=== PATIENT | male | born 1970 | race Caucasian/White ===

== ENCOUNTER 2024-07-21 16:32 | Emergency (ER) | payer SELFPAY ==
--- NOTE | ~2024-07-21 | XR_ITS ---
HISTORY: injured right elbow working out COMPARISON: None TECHNIQUE: 3 views of the right elbow were performed. FINDINGS: Well-circumscribed osseous density is identified along the suspected course of the triceps tendon, re presenting either calcified triceps tendinosis versus an acute fracture of the olecranon at its attac hment. No elevation of the anterior or posterior fat pads are identified to suggest a supracondylar fracture . Remainder of the overlying soft tissues are otherwise unremarkable. Bone mineralization is age-appropriate. IMPRESSION: Findings posterior to the right elbow suggesting an acute fracture of the olecranon at t he attachment of the triceps tendon for which clinical correlation for a triceps tendon disruption is needed. MRI may also be performed, if the patient is clinically able. Reviewed, dictated and finalized at location A. IMPRESSION: Findings posterior to the right elbow suggesting an acute fracture of the olecranon at the attachment of the triceps tendon for which clinical co rrelation for a triceps tendon disruption is needed. MRI may also be performed, if the patient is clinically able.
--- NOTE | 2024-07-21 16:36 | ED.UPPEXIN ---
HPI - Extremity Injury (Upper) General Chief Complaint: Extremity Injury, Upper Stated Complaint: Injured Shoulder Time Seen by Provider: 07/21/24 16:36 Source: patient Mode of arrival: ambulatory Limitations: no limitations History of Present Illness HPI narrative: Stu is a 54-year-old male patient presenting to the clinic today with complaints of a right elbow injury when lifting weights around 3pm today. He reports he was bench pressing working on his triceps when he felt as though his elbow popped out of place- states he dumped the weights and felt as though it then pop back into place. Is having right elbow pain. Is requesting an x-ray of his elbow. Related Data Home Medications ?Medication ?Instructions ?Recorded ?Confirmed ?Last Taken ?Type allopurinol 100 mg tablet 100 mg PO DAILY 03/22/19 03/22/19 03/22/19 History colchicine 0.6 mg tablet 0.6 mg PO DAILY 03/22/19 03/22/19 03/22/19 History indomethacin 50 mg capsule 50 mg PO BID 03/22/19 03/22/19 03/22/19 History olmesartan 40 mg tablet 40 mg PO DAILY 03/22/19 03/22/19 03/22/19 History Allergies Allergy/AdvReac Type Severity Reaction Status Date / Time acetaminophen Allergy Intermediate Swelling Verified 07/21/24 16:52 aspirin Allergy Intermediate Swelling Verified 07/21/24 16:52 Review of Systems Review of Systems: Pertinent positives per HPI. Patient denies any fever, chills, rash, headache, visual changes, dizziness, cough, runny nose, sore throat, shortness of breath, chest pain, palpitations, nausea, vomiting, diarrhea, constipation, abdominal pain, or any urinary issues. [facility] Past Medical History Medical History AVRIL (obstructive sleep apnea) Hypertension Family History Family History Father Hypertension Asthma Patient's father is in good health Family history of diabetes mellitus in first degree relative Mother Patient's mother is in good health Sibling Patient's sister is in good health Patient's brother is in good health Other Family history of allergic disorder Family history of migraine headaches Social History Social History (Reviewed 03/20/25 @ 16:44 by QI Avery Alcohol intake: current Comments At the time of my signature, I reviewed and agree with the nursing past medical, surgical, social, and family history. There is no relevant family history pertinent to the patient complaint. Exam Narrative: General: Well-developed, well nourished, in no apparent distress Head: Normocephalic, atraumatic. Cardio: Regular rate and rhythm, s1 and s2 normal, no murmur appreciated. Resp: Clear to auscultation bilaterally, no rhonchi, rales, wheezing or rubs. Musculoskeletal: No deformity, mild swelling with fluctuance noted over the posterior elbow, tender to palpation over the posterior olecranon, pain with flexion of the triceps over the triceps tendon, grossly normal range of motion, muscle strength strong and equal, peripheral pulse strong, no cyanosis, normal gait and station Course Course Emergency Course: Portions of this record may have been created with voice recognition software. Level of Care: Express Care Visit Vital Signs Vital signs: Vital Signs Temperature 36.6 C 07/21/24 16:47 Pulse Rate 77 07/21/24 16:47 Respiratory Rate 16 07/21/24 16:47 Blood Pressure 195/105 H 07/21/24 16:47 Pulse Oximetry 100 07/21/24 16:47 Temperature 36.6 C 07/21/24 16:47 Pulse Rate 77 07/21/24 16:47 Respiratory Rate 16 07/21/24 16:47 Blood Pressure 195/105 H 07/21/24 16:47 Pulse Oximetry 100 07/21/24 16:47 Vital signs reviewed MDM - Extremity Injury (Upper) MDM Narrative Medical decision making narrative: At the time of visit patient is resting comfortably on the exam table. Patient appears to be nontoxic. Diagnostics: X-ray of the right elbow was completed and shows likely avulsion fracture of the olecranon-probable triceps tendon rupture/injury Plan: I suspect patient has a closed posterior olecranon fracture with triceps tendon injury. Recommend follow-up with Dr. Vivar-call office tomorrow to schedule appointment. Copy of x-ray report and disc was given to the patient. Supportive measures were discussed with the patient and they voiced understanding discharge instructions and agrees to treatment plan. Return precautions reviewed Differential Diagnosis Differential diagnosis: Likely fracture of humerus and other (Avulsion fracture, elbow sprain, elbow dislocation, fracture of lateral epicodyle) Imaging Data Radiologist's impression: ITS Impressions Elbow X-Ray 07/21/24 17:13 IMPRESSION: Findings posterior to the right elbow suggesting an acute fracture of the olecranon at the attachment of the triceps tendon for which clinical correlation for a triceps tendon disruption is needed. MRI may also be performed, if the patient is clinically able. Discharge Plan Discharge Clinical Impression: Injury of tendon of triceps Closed olecranon fracture Qualifiers: Encounter type: initial encounter Laterality: right Qualified Code(s): S52.021A - Displaced fracture of olecranon process without intraarticular extension of right ulna, initial encounter for closed fracture Patient Disposition: Home, Self-Care Condition: Stable Instructions: Antibiotic Form, Elbow Fracture (ED), Tendon Rupture (ED) Additional Instructions: X-ray shows acute fracture of the olecranon an at the attachment of the triceps tendon-probable triceps tendon disruption Rest, ice, elevate, and wear laila wrap and arm sling as directed Tylenol/motrin for pain as discussed. No use of the right arm until cleared by orthopedic provider Call Dr. Vivar office tomorrow to schedule an appointment. Will likely need a MRI If you cannot get in to orthopedic provider your primary care provider may order the MRI as well. Patient Language: Persian Prescriptions: No Action allopurinol 100 mg Tablet 100 mg PO DAILY indomethacin 50 mg Capsule 50 mg PO BID colchicine 0.6 mg Tablet 0.6 mg PO DAILY olmesartan 40 mg Tablet 40 mg PO DAILY Follow-up/Referrals: PHYSICIAN,BRANCH RENTAL MANAGER [Primary Care Provider] - Evelio Vivar MD [Physician] - 1 Day (Posterior right elbow closed acute fracture of the olecranon at the attachment of the triceps tendon with possible disruption. MRI recommended for further evaluation) Time of Disposition: 17:38 Quality NIHSS Nursing Documentation ED NIHSS nursing documentation: reviewed/agree
[2024-07-21 16:47] VITALS: BP 195/105; PULSE 77; RESP 16; TEMP 36.6; O2SAT 100
== END 2024-07-21 17:47 | disposition home or self-care (01) ==
PROVIDERS: Emergency Provider Nurse Practitioner Family
DX: S52.021A Displaced fracture of olecranon process without intraarticular extension of right ulna, initial encounter for closed fracture (principal); S46.301A Unspecified injury of muscle, fascia and tendon of triceps, right arm, initial encounter; I10 Essential (primary) hypertension; X50.0XXA Overexertion from strenuous movement or load, initial encounter
CPT/HCPCS: 73080; 99214; A4565; G0463

== ENCOUNTER 2024-07-29 01:05 | Day surgery (SDC) | payer OTHER, SELFPAY ==
[2024-07-27 12:57] VITALS: BMI 36.8
--- NOTE | 2024-07-27 12:58 | PC.NURSE ---
Report to the Outpatient Waiting Room, entrance under the green pavilion located off [facility], at time _0630_ on date _[id number]_. Planned Procedure Time: _0830_.? Time changes happen often and if your time is changed the preop area will call you the afternoon before. - You and your visitor will be asked to self-screen and do not enter if you have any COVID symptoms. Please call surgeon if you need to reschedule. - A mask is optional within the hospital at this time. Patients may have clear liquids (water, carbonated beverages, clear teas, apple juice) until 3 hours prior to surgery with a maximum of 20 ounces. - No food from midnight until time of surgery and no smoking, or chewing tobacco (or any form of nicotine). No chewing gum, candy or mints. Take only the following medications with a SIP of water on the morning of surgery: __Tramadol if needed for pain.___ DO NOT STOP ANY OF YOUR OTHER PRESCRIPTION MEDICATIONS PRIOR TO SURGERY EXCEPT THE FOLLOWING Hold all vitamins and supplements for 3 days per anesthesiologist. Medications to discontinue per physician ___Indomethacin and Naproxen Date to take last dose___No more until after surgery.___ Please no make-up, nail maltese, hairspray, perfume, deodorant, or body powder the day of surgery.? No jewelry (including any body piercings) or valuables the day of surgery, leave them at home.? Please take a shower or bath the night before, or the morning of, surgery with an antibacterial soap.? Wear comfortable, loose fitting clothing.? - Jewelry must be removed prior to entering the operating room.? Rings and piercings that are not removed may be cut off. - The hospital will not accept responsibility for valuables.? - Please leave all valuables, including medications, at home the day of surgery. If you are going home after surgery, a licensed sprinkling truck driver must drive you home.? - NO public transportation without another adult if you receive anesthesia. - We recommend that an adult stay with you for 24 hours following discharge. - We also recommend that you do not drive, make important decision, drink alcoholic beverages, or take any drugs that were not prescribed by your health care provider for at least 24 hours after your discharge time. Follow any additional instructions given to you from your surgeon. Telephone instructions given to __James__and asked if any additional questions and then verbalized understanding. Patient advised to call surgeon office or pre surgery nurse liaison [phone] if any additional questions.
[2024-07-29] VITALS (13 sets, daily range): BP systolic 140–176; BP diastolic 71–106; PULSE 62–76; RESP 14–19; TEMP 36.2–36.4; O2SAT 93–99; BMI 37.1
--- OUTSIDE RECORDS SUMMARY | 2024-07-29 01:08 | XMS_ITS | Continuity of Care Document ---
Author Organization [facility] Address [address] [place] [address] [place] [address] Phone Care Team Providers Care Harp Regulator Name Role Phone Jose Rdz MD Unavailable Unavailable Allergies, Adverse Reactions, Alerts Substance Reaction Status Criticality acetaminophen Swelling around eyes Active No Inf ormation aspirin Swelling around eyes Active No Info rmation cat dander Trouble BreathingRed Eyes Active No Information Medications Medication Instructions Dosage Effective Dates (start - stop) Status Comments tramadol 50 mg tablet take 1 tablet by oral route every 6 hours as needed as needed 50 MG - Active PRN for gout indomethacin 50 mg capsule take 1 capsule by oral route 3 times every day with food 50 MG - Active colchicine 0.6 mg tablet take 2 tablet by oral route initially, then take 1 tab (0.6 mg ) in 1 hr as needed 1.2 MG - Active PRN for gout, max 3 pills per episodes and do not repeat within 3 days. allopurinol 300 mg tablet take 1 tablet by oral route every day 300 MG - Active prednisone 10 mg tablet take 3 tablet by oral route every day as needed 30 MG - Active PRN for gout sildenafil 100 mg tablet take 1 tablet by oral route every day as needed approximately 1 hour before sexual activity as needed 100 MG - Active take one pill orally about one hour before activity, max 1/24 hours Procedures Procedure Date PREV VISIT, EST, AGE 40-64 OFFICE/OUTPATIENT VISIT, EST PREV VISIT, NEW, AGE 40-64 OFFICE/OUTPATIENT VISIT, NEW Advance Directives Directive Yes / No Effective Date File Name No Information Encounters Encounter Description Practice Location Reason(s) For Visit Diagnoses Date Provider Providers Copied on Encounter [facility], [address] [place], [place], [id number], tel:[phone] [facility] Medicine No Information 4 Kendell Baird [address], [place], [place], [id number] , . tel: [phone] [facility], [address], [place], [id number], tel:[phone] [facility] No Information 4 Kendell Baird [address], [place], [place], [id number] , [place]. tel: [phone] PREV VISIT, EST, AGE 40-64 [facility], [address], [place], [id number], tel:[phone] [facility] physical (chief complaint) Encounter for general adult medical exam w abnormal findingsGoutObstruc tive sleep apnea hypopneaEssential (primary) hypertensionVenous insufficiencyMale erectile dysfunction, unspecifiedHypothyr oidismMixed hyperlipidemiaRenal disease 4 Kendell [address]. [address] [place], [place], [id number] , [place]. tel: [phone] PREV VISIT, NEW, AGE 40-64 [facility], [address], [place], [id number], [place] tel:[phone] [facility] physical (chief complaint) Encounter for general adult medical exam w abnormal findingsPrimary central sleep apneaMale erectile dysfunction, unspecifiedGoutEsse ntial (primary) hypertension 3 Kendell Garcia[address] [place], [place], [id number] , [place]. tel: [phone] Family History Family Member Type Diagnosis Age At Onset Father Problem Diabetes mellitus Mother Problem of COVID and emphysema 74 Father Problem Coronary artery disease Brother Problem Alive and well Payers Payer name Insurance type Covered green party ID Authoriza tion(s) No Information Social History Type Description Quantity Date Captured Comments Sex Male Smoking Status No Information Chief Complaint And Reason For Visit No Information Plan Of Treatment Date Type Action Status No Information History Of Present Illness Encounter Date Complaint History Of Prese nt Illness physical Pt needs annual physical Pt has gout with recurrent flare up. Pt takes allopurinol daily and he takes colchicine and prednisone and indocin PRN for flare up. Pt states that he has gout flare up at least 1-2 per month, especially both knee and both feet. Pt states that alcohol and weather change triggers the flare up .Pt notices joint swelling and redness and warmth with gout flare up. He has history of HTN but he has not been taking any bp meds and his bp is ok Pt also has ED and doing ok with sildenafil PRN pt also has some bilateral LE edema, especially towards end of the day and improves in the morning. Pt denies any sob Pt notices some discoloration around the bilateral LEs . Pt also has sleep apnea and he uses oral device and doing ok . Pt has mildly low thyroid and renal function and high TG physical Pt needs annual physical Pt has gout with recurrent flare up. Pt takes allopurinol daily and he takes colchicine and prednisone and indocin PRN for flare up. Pt states that he has gout flare up at least 1-2 per month, especially both knee and both feet. Pt states that alcohol and weather change triggers the flare up .Pt notices joint swelling and redness and warmth with gout flare up. He also was diagnosed with HTN and he is prescribed benicar but he does not take it. he does not believe that he has HTN. he denies any chest pain or headache. Pt also takes sildenafil pRn and doing ok Instructions Date Instruction Additional Infor mation No Information Assessments Type Assessment Date No Information
[2024-07-29] MEDS: LACTATED RINGERS 1,000 ML 30 ML IV CONT ×2 (07:00→10:40)
[2024-07-29] MEDS: KETOROLAC 15 MG/ML VIAL (*BKC) IV PUSH (07:20)
--- NOTE | 2024-07-29 07:38 | WPDANESEPPF ---
Anes - Initial Pre Proc Eval Procedure: Operation Date: 07/29/24 08:30 Proposed Procedures p Right Triceps Tendon Repair - Evelio Vivar MD Date/Time: 07/29/24 07:38 Surgeon: Evelio Vivar MD Pre Op Diagnosis: right triceps tendon rupture Patient Data Age: 54 Gender: M Height: 1.7 m Weight: 107.7 kg Last Vital Signs Temp 36.4 C L 07/29/24 06:36 Pulse 72 07/29/24 06:36 Resp 16 07/29/24 06:36 BP 169/91 H 07/29/24 06:36 Pulse Ox 99 07/29/24 06:36 O2 Del Method Room Air 07/29/24 06:36 Allergies Allergy/AdvReac Type Severity Reaction Status Date / Time acetaminophen Allergy Intermediate Swelling Verified 07/29/24 07:10 aspirin Allergy Intermediate Swelling Verified 07/29/24 07:10 Home Medications ?Medication ?Instructions ?Recorded ?Confirmed ?Type allopurinol 100 mg tablet 100 mg PO DAILY 03/22/19 07/29/24 History colchicine 0.6 mg tablet 0.6 mg PO DAILY 03/22/19 07/27/24 History indomethacin 50 mg capsule 50 mg PO BID 03/22/19 07/27/24 History naproxen 500 mg tablet 500 mg PO BID 07/27/24 07/27/24 History prednisone 10 mg tablet 10 mg PO DIRECTED 07/27/24 07/27/24 History tramadol 50 mg tablet 50 mg PO Q6H PRN pain 07/27/24 07/27/24 History Patient hx anesthesia problems: none Family hx anesthesia problems: none Results Review: All pre-operative results and documents have been reviewed as part of the pre-operative evaluation. [facility] Past Medical History Medical History (Updated 07/29/24 @ 07:38 by Stu Chiu MD) Obesity AVRIL (obstructive sleep apnea) Hypertension Surgical History Surgical History History of carpal tunnel surgery of right wrist (~2006) Family History Family History Father Hypertension Asthma Patient's father is in good health Family history of diabetes mellitus in first degree relative Mother Patient's mother is in good health Sibling Patient's sister is in good health Patient's brother is in good health Other Family history of allergic disorder Family history of migraine headaches Social History Social History Smoking status: Never smoker Alcohol intake: current Substance use type: marijuana Other substance usage details: smoke and gummies once a month. Do You Feel Safe in your Home?: Yes Lack of Transportation: No Lack of Food: Never True Current Housing: I Have Housing Concerned About Future Housing: No Difficulty Paying Gas/Electric Bills: No Difficulty Paying for Meds: No Education: Associate Degree Difficulty w/ Childcare or Family Care: No Living arrangements: with family Spiritual care concerns: No Anes - Eval Final PreProcedure Day of Procedure 07/29/24 07:38 Patient weight: obese Heart: regular rate and rhythm Lungs: clear to auscultation Airway: Mallampati scale class II Neurological: alert and oriented Last oral intake: >/= 8 hours ASA classification: III Emergent: no Anesthetic plan: proceed Anesthesia type and monitoring: general ETT and standard monitoring Results Review: All pre-operative results and documents have been reviewed as part of the pre-operative evaluation. Informed Consent: The patient's anesthetic plan and its attendant risks and benefits were discussed with the patient/family/POA. Questions were solicited and answers provided to the satisfaction of the patient/family/POA.
--- NOTE | 2024-07-29 08:40 | WPDHPUPDATE1 ---
History and Physical Update Update Date/Time: 07/29/24 08:40 History and Physical has been reviewed, including an updated exam of the patient. There are NO changes in the patient's condition. Risks, benefits, and alternatives have been discussed and questions answered. Patient agrees to proceed with procedure.
[2024-07-29] MEDS: ceFAZolin 2 GM/D5W 50 ML 2 GM/50 ML BAG IVPB (08:46)
[2024-07-29] MEDS: BUPIVACAINE/EPINEPHRINE 0.5% 50 ML VIAL 30 ML INFILTRATE (09:34)
[2024-07-29] MEDS: oxyCODONE HCL (*CRX) 5 MG TAB IR PO (12:40)
--- NOTE | 2024-07-29 17:51 | W.PM.PROC2 ---
Procedure Note - Detailed Date of Procedure 07/29/24 Pre-op Diagnosis Acute right triceps tendon rupture Post-op Diagnosis Same Procedure Performed Right triceps tendon repair Surgeon Evelio Vivar MD Anesthesia General Findings Complete rupture of the tendon. Description of Procedure Preoperative antibiotics were given. The patient was placed carefully in the lateral decubitus position on a beanbag. The lower arm was carefully positioned as were the head neck. The arm was prepped and draped in the usual sterile fashion with a well-padded tourniquet high in the arm. The limb was exsanguinated the tourniquet inflated to 250 mmHg for the duration of the procedure. A longitudinal incision was created just lateral to the olecranon. Careful dissection was brought down creating full-thickness flaps. The defect was several cm and clearly identified. The bony insertion on the olecranon was cleared of debris. The tendon end was gently debrided. Good tissue remained for repair. Two Krackow sutures with FiberWire were woven into the tendon. An additional passing suture was placed in between these more superficially. Two 2 mm drill holes were placed from the proximal aspect of the footprint out the more distal lateral olecranon. The 3 suture limbs from each side were passed through this hole. One suture limb from each passage was then repassed with the suture shuttle. This allowed for a compression of the footprint. An additional central horizontal mattress suture was placed given the fairly significant width of the tendon. These were all placed into a SwiveLock anchor through a drill hole centrally; tensioned with the arm extended. The repair appeared very anatomic and secure with good compression of the tendon back to the footprint anatomically. There was no excessive tension and no gapping with flexion of the elbow. A supplemental FiberWire suture was placed in torn fibers at the medial aspect of the tendon attachment with particular care taken to avoid the area of the ulnar nerve. The wound was irrigated. The tourniquet was released. The deep tissues were closed with interrupted Vicryl suture followed by running 2-0 and 3-0 Stratafix barbed suture. Steri-Strips were placed on the skin with a well-padded dressing with light compression and a posterior splint at 30?. 0.5% Marcaine was used for perioperative pain control. Implants Arthrex SwiveLock anchor. Bioabsorbable 4.75 mm. Estimated Blood Loss 10 Drains No Packing No Pathology None sent Complications No immediate complications Condition Stable Disposition PACU [facility] Billing Surgery - Charge Forward: Surgery Billing
== END 2024-07-29 13:34 | disposition home or self-care (01) ==
PROVIDERS: Visit Provider Orthopaedic Surgery
PROC: (CPT 24341; principal; 2024-07-29 08:30)
DX: S46.311A Strain of muscle, fascia and tendon of triceps, right arm, initial encounter (principal); I10 Essential (primary) hypertension; G47.33 Obstructive sleep apnea (adult) (pediatric); F12.90 Cannabis use, unspecified, uncomplicated; X50.0XXA Overexertion from strenuous movement or load, initial encounter; E66.9 Obesity, unspecified; Z68.37 Body mass index [BMI] 37.0-37.9, adult; Z79.1 Long term (current) use of non-steroidal anti-inflammatories (NSAID); Z79.52 Long term (current) use of systemic steroids; Z79.891 Long term (current) use of opiate analgesic; Z98.890 Other specified postprocedural states
CPT/HCPCS: 24341; A9270; C1713; J0171; J0690; J1100; J1171; J1885; J2003; J2250; J2405; J2704; J3010; J7120